=== PATIENT | female | born 1940 | race Hispanic/Latino ===

== ENCOUNTER → 2017-11-08 | Outpatient (CLI) | payer OTHER | END | disposition home or self-care (01) | LOC: SHCH 11:28 | PROVIDERS: ATTEND Internal Medicine Cardiovascular Disease | DX: I08.1 Rheumatic disorders of both mitral and tricuspid valves (principal); I70.0 Atherosclerosis of aorta; I13.0 Hypertensive heart and chronic kidney disease with heart failure and stage 1 through stage 4 chronic kidney disease, or unspecified chronic kidney disease; E11.22 Type 2 diabetes mellitus with diabetic chronic kidney disease; N18.9 Chronic kidney disease, unspecified; I50.22 Chronic systolic (congestive) heart failure; E78.5 Hyperlipidemia, unspecified; I25.10 Atherosclerotic heart disease of native coronary artery without angina pectoris | CPT/HCPCS: 93306 ==

== ENCOUNTER 2018-02-14 14:36 | Emergency (ER) | payer OTHER ==
[2018-02-14 15:10] LABS: APPEARANCE,URINE Clear (CLEAR); BILIRUBIN,URINE Negative (NEGATIVE); COLOR,URINE Yellow (YELLOW); GLUCOSE, URINE (UA) Negative (NEGATIVE); KETONES,URINE Negative (NEGATIVE); LEUKOCYTE ESTERASE ,URINE Trace (NEGATIVE); NITRATE,URINE Negative (NEGATIVE); OCCULT BLOOD,URINE Negative (NEGATIVE); PROTEIN,URINE Negative (NEGATIVE)
[2018-02-14 15:19] LABS: BASOPHILS % (AUTO) 0.6 % (0.0-5.0); EOSINOPHILS % (AUTO) 0.4 % (0.0-8.0); LYMPHOCYTES % (AUTO) 16.5 % (21.0-51.0); MEAN CORPUSCULAR HEMOGLOBIN 33.3 pg (27.0-33.0); MONOCYTES % (AUTO) 8.7 % (3.0-13.0); NEUTROPHILS % (AUTO) 73.8 % (40.0-77.0); PLATELET COUNT (AUTO) 168 K/uL (130-400); RED CELL DISTRIBUTION WIDTH 14.3 % (11.0-15.5); WHITE BLOOD COUNT (AUTO) 8.3 K/uL (4.8-10.8)
[2018-02-14 15:22] LABS: CREATININE 1.1 mg/dL (0.5-1.5); POTASSIUM 3.7 mmol/L (3.5-5.1)
[2018-02-14 15:29] LABS: BILIRUBIN,TOTAL 2.3 mg/dL (0.2-1.0)
[2018-02-14 15:41] LABS: RBC,URINE 0-1 /HPF (0-1)
[2018-02-14 15:42] LABS: BACTERIA,URINE Rare /HPF (None Seen); HYALINE CASTS, URINE 0-1 /LPF (0-1 /LPF); SQUAMOUS EPITHELIAL CELL,UR Few /HPF (0-2)
[2018-02-14] MEDS ORDERED: FUROSEMIDE 10 MG/ML 4ML VIAL ONE (17:47)
[2018-02-19] MEDS ORDERED: CARV6.25 PO (20:15)
[2018-02-19] MEDS ORDERED: CHOL50004 PO (20:15)
[2018-02-19] MEDS ORDERED: FURO20TA4 PO (20:15)
[2018-02-19] MEDS ORDERED: FERR325T22 PO (20:15)
[2018-02-19] MEDS ORDERED: ASPI-555 PO (20:15)
[2018-02-19] MEDS ORDERED: POTA20TA82 PO (20:15)
[2018-02-19] MEDS ORDERED: GLIM4TAB3 PO (20:15)
== END 2018-02-14 20:16 | disposition home or self-care (01) ==
LOC: EDH 14:36
DX: I11.0 Hypertensive heart disease with heart failure (principal); I50.9 Heart failure, unspecified; E87.1 Hypo-osmolality and hyponatremia; E11.65 Type 2 diabetes mellitus with hyperglycemia
CPT/HCPCS: 36415; 71046; 80053; 81001; 82550; 83880; 84484 ×2; 85025; 93005 ×2; 96374; 99284; J1940

== ENCOUNTER 2018-03-11 12:09 | Inpatient (IN) | payer OTHER | END 2018-03-17 13:05 | disposition home or self-care (01) | LOC: EDH 12:09 → 2DH 14:52 | DX: I13.0 Hypertensive heart and chronic kidney disease with heart failure and stage 1 through stage 4 chronic kidney disease, or unspecified chronic kidney disease (principal); I50.41 Acute combined systolic (congestive) and diastolic (congestive) heart failure; E87.1 Hypo-osmolality and hyponatremia; E11.22 Type 2 diabetes mellitus with diabetic chronic kidney disease; I34.0 Nonrheumatic mitral (valve) insufficiency; I07.1 Rheumatic tricuspid insufficiency; Z72.0 Tobacco use; N18.3 Chronic kidney disease, stage 3 (moderate) ==

== ENCOUNTER 2018-11-30 09:42 | Emergency (ER) | payer OTHER ==
[~2018-11-30 09:42] MED LIST: ASPI-555 PO; CHOL50004 PO; FERR325T22 PO; FURO40TA7 PO; GLIM4TAB5 PO; POTA20TA82 PO; SPIR25TA PO
[2018-11-30] MEDS ORDERED: SODIUM CHLORIDE 0.9% 500ML 500 ML IV ONE (10:39)
[2018-11-30] MEDS ORDERED: ONDANSETRON HCL 4 MG/2 ML VIAL ONE (10:40)
[2018-11-30 10:52] LABS: BASOPHILS % (AUTO) 0.3 % (0.0-5.0); EOSINOPHILS % (AUTO) 0.2 % (0.0-8.0); HEMATOCRIT 34.5 % (36-48); LYMPHOCYTES % (AUTO) 8.1 % (21.0-51.0); MEAN CORPUSCULAR HEMOGLOBIN 34.3 pg (27.0-33.0); MEAN CORPUSCULAR HGB CONC 34.2 g/dL (32.0-36.0); MONOCYTES % (AUTO) 4.4 % (3.0-13.0); NUCLEATED RED BLOOD CELLS 0.1 % (0.0-0.19); PLATELET COUNT (AUTO) 200 K/uL (130-400); RED BLOOD CELL COUNT(AUTO) 3.44 MIL/uL (4.00-5.50); RED CELL DISTRIBUTION WIDTH 12.3 % (11.0-15.5); WHITE BLOOD COUNT (AUTO) 9.1 K/uL (4.8-10.8)
[2018-11-30 10:53] LABS: ALBUMIN 3.7 g/dL (3.5-5.0); BILIRUBIN,TOTAL 0.5 mg/dL (0.2-1.0); CREATININE 1.4 mg/dL (0.5-1.5); POTASSIUM 4.7 mmol/L (3.5-5.1); TOTAL PROTEIN, SERUM 8.4 g/dL (6.0-8.3)
[2018-11-30] MEDS ORDERED: INSULIN HUMULIN R 100 UNIT/ML 3ML ONE (11:32)
[2018-11-30 14:02] LABS: APPEARANCE,URINE Clear (CLEAR); BILIRUBIN,URINE Negative (NEGATIVE); COLOR,URINE Yellow (YELLOW); GLUCOSE, URINE (UA) >=1000 mg/dL (NEGATIVE); KETONES,URINE Trace mg/dL (NEGATIVE); LEUKOCYTE ESTERASE ,URINE Negative (NEGATIVE); NITRATE,URINE Negative (NEGATIVE); OCCULT BLOOD,URINE Negative (NEGATIVE); PH,URINE 5.5 (5.0-8.0); PROTEIN,URINE Negative (NEGATIVE); UROBILINOGEN,URINE 0.2 mg/dL (0.2-1.0)
[2018-11-30] MEDS ORDERED: ACETAMINOPHEN 325 MG TAB ONE (14:16)
[2018-11-30 14:18] LABS: RBC,URINE 0-1 /HPF (0-1); WBC,URINE None Seen /HPF (0-1)
[2018-11-30 14:19] LABS: BACTERIA,URINE Few /HPF (None Seen)
[2018-11-30] MEDS ORDERED: ACETAMINOPHEN-CODEINE 300/30MG TAB ONE (15:11)
[2018-11-30] MEDS ORDERED: LIDOCAINE 5% TOPICAL PATCH TP ONE (15:16)
== END 2018-11-30 15:47 | disposition home or self-care (01) ==
LOC: EDH 09:42
DX: S22.009A Unspecified fracture of unspecified thoracic vertebra, initial encounter for closed fracture (principal); E11.65 Type 2 diabetes mellitus with hyperglycemia; R11.2 Nausea with vomiting, unspecified; I10 Essential (primary) hypertension; Z87.891 Personal history of nicotine dependence; Z88.2 Allergy status to sulfonamides; Z88.8 Allergy status to other drugs, medicaments and biological substances; X58.XXXA Exposure to other specified factors, initial encounter; Y93.89 Activity, other specified; Y92.89 Other specified places as the place of occurrence of the external cause; Y99.8 Other external cause status
CPT/HCPCS: 36415; 70450; 71045; 72131; 80053; 81001; 82010; 82150; 82948; 83690; 85025; 87804 ×2; 93005; 96361; 96374; 96375; 99285; J1815; J2405; J7040

== ENCOUNTER 2019-02-09 21:43 | Inpatient (IN) | payer OTHER ==
[~2019-02-09] VITALS: Ht 157.5 cm; Wt 58.2 kg
[2019-02-09] MEDS ORDERED: SODIUM CHLORIDE 0.9% 500ML 500 ML IV ONE (22:07)
[2019-02-09 22:40] LABS: BASOPHILS % (AUTO) 0.1 % (0.0-5.0); EOSINOPHILS % (AUTO) 0.3 % (0.0-8.0); HEMATOCRIT 27.9 % (36-48); LYMPHOCYTES % (AUTO) 4.8 % (21.0-51.0); MEAN CORPUSCULAR HEMOGLOBIN 33.3 pg (27.0-33.0); MEAN CORPUSCULAR HGB CONC 33.7 g/dL (32.0-36.0); MEAN CORPUSCULAR VOLUME 98.9 fL (79-99); NEUTROPHILS % (AUTO) 87.5 % (40.0-77.0); PLATELET COUNT (AUTO) 302 K/uL (130-400); RED BLOOD CELL COUNT(AUTO) 2.82 MIL/uL (4.00-5.50); RED CELL DISTRIBUTION WIDTH 12.1 % (11.0-15.5); WHITE BLOOD COUNT (AUTO) 13.7 K/uL (4.8-10.8)
[2019-02-09] MEDS ORDERED: SODIUM CHLORIDE 0.9% 1000ML 1,000 ML IV ONE ×2 (22:42→23:21)
[2019-02-09 22:49] LABS: INR 0.99 (0.85-1.15); PARTIAL THROMBOPLASTIN TIME 27.8 SEC (26.3-35.5); PROTHROMBIN TIME 10.4 SEC (9.6-11.6)
[2019-02-09 23:09] LABS: ALBUMIN 3.1 g/dL (3.5-5.0); BILIRUBIN,TOTAL 0.7 mg/dL (0.2-1.0); CREATININE 3.3 mg/dL (0.5-1.5)
[2019-02-09 23:15] LABS: APPEARANCE,URINE Clear (CLEAR); BILIRUBIN,URINE Negative (NEGATIVE); COLOR,URINE Dark Yellow (YELLOW); GLUCOSE, URINE (UA) Negative (NEGATIVE); KETONES,URINE Negative (NEGATIVE); LEUKOCYTE ESTERASE ,URINE Trace (NEGATIVE); NITRATE,URINE Negative (NEGATIVE); OCCULT BLOOD,URINE Trace (NEGATIVE); PROTEIN,URINE Trace mg/dL (NEGATIVE)
[2019-02-09 23:36] LABS: RBC,URINE 0-1 /HPF (0-1)
[2019-02-09 23:37] LABS: AMORPHOUS SEDIMENT,UR Few /LPF (None Seen); BACTERIA,URINE Few /HPF (None Seen); SQUAMOUS EPITHELIAL CELL,UR 0-2 /HPF (0-2)
[2019-02-10] VITALS (13 sets, daily range): BP systolic 93–130; BP diastolic 50–72
[2019-02-10 00:01] LABS: POTASSIUM 6.6 mmol/L (3.5-5.1)
[2019-02-10] MEDS ORDERED: SODIUM POLYSTYRENE SULFONATE 15 GM/60 ML ML ONE (00:08)
[2019-02-10] MEDS ORDERED: ALBUTEROL SULFATE 0.083% 2.5 MG/3 ML INH IH ONE (00:11)
[2019-02-10] MEDS ORDERED: SODIUM BICARB 50MEQ 50ML VIAL ONE (00:19)
[2019-02-10] MEDS ORDERED: INSULIN HUMULIN R 100 UNIT/ML 3ML ONE (00:19)
[2019-02-10] MEDS ORDERED: DEXTROSE 50%-WATER 50 ML DISP.SYRIN IV ONE (00:20)
[2019-02-10] MEDS ORDERED: ZOSYN 3.375GM+NS 50ML 50 ML IV ONE ×2 (01:38→15:02)
[2019-02-10] MEDS ORDERED: ACETAMINOPHEN 650 MG SUPPOSITORY RC PRN (02:00)
[2019-02-10] MEDS: SODIUM CHLORIDE 0.9% 1000ML 1,000 ML IV SCH ×3 (02:00→15:20)
[2019-02-10] MEDS ORDERED: SODIUM CHLORIDE 0.9% 1000ML 1,000 ML IV ONE ×4 (02:01→15:01)
[2019-02-10] MEDS ORDERED: SODIUM CHLORIDE 0.9% 1000ML 1,000 ML IV SCH (02:15)
[2019-02-10] MEDS ORDERED: SODIUM POLYSTYRENE SULFONATE 15 GM/60 ML ML PO SCH (02:15)
[2019-02-10] MEDS ORDERED: NOREPINEPHRINE 4MG/NS 250ML 250 ML IV SCH ×2 (02:30→17:00)
[2019-02-10] MEDS ORDERED: NOREPINEPHRINE BITARTRATE 1 MG/1 ML ML IV ONE (03:27)
[2019-02-10] MEDS ORDERED: SODIUM CHLORIDE 0.9% 250 ML IV ONE (03:28)
[2019-02-10 05:30] LABS: BASOPHILS % (AUTO) 0.1 % (0.0-5.0); EOSINOPHILS % (AUTO) 0.1 % (0.0-8.0); HEMATOCRIT 23.4 % (36-48); LYMPHOCYTES % (AUTO) 6.2 % (21.0-51.0); MEAN CORPUSCULAR HEMOGLOBIN 33.3 pg (27.0-33.0); MEAN CORPUSCULAR HGB CONC 33.3 g/dL (32.0-36.0); MONOCYTES % (AUTO) 7.8 % (3.0-13.0); NEUTROPHILS % (AUTO) 85.4 % (40.0-77.0); PLATELET COUNT (AUTO) 262 K/uL (130-400); RED BLOOD CELL COUNT(AUTO) 2.34 MIL/uL (4.00-5.50); RED CELL DISTRIBUTION WIDTH 12.2 % (11.0-15.5)
[2019-02-10 06:08] LABS: ALBUMIN 2.2 g/dL (3.5-5.0); BILIRUBIN,TOTAL 0.8 mg/dL (0.2-1.0); CREATININE 2.4 mg/dL (0.5-1.5); POTASSIUM 4.9 mmol/L (3.5-5.1); TOTAL PROTEIN, SERUM 6.1 g/dL (6.0-8.3)
[2019-02-10] MEDS: ALLOPURINOL 100 MG TABLET PO SCH ×3 (09:00→20:41)
[2019-02-10] MEDS: SODIUM BICARBONATE 650 MG TAB PO SCH ×3 (09:00→20:41)
[2019-02-10] MEDS: PANTOPRAZOLE 40 MG/VIAL IVP SCH (09:00)
[2019-02-10] MEDS ORDERED: METRONIDAZOLE 500MG/100ML BAG 100 ML ONE (09:16)
[2019-02-10] MEDS ORDERED: ZOSYN 3.375GM+NS 50ML 50 ML IV SCH (12:00)
[2019-02-10 12:47] LABS: TROPONIN I 0.05 ng/mL (0.00-0.06)
[2019-02-10] MEDS ORDERED: CEFEPIME HCL 2 GM VIAL IVP SCH (17:00)
[2019-02-10] MEDS ORDERED: ALBUMIN (HUMAN) 25% 100 ML IV SCH (17:00)
[2019-02-10] MEDS ORDERED: HYDROMORPHONE 4MG/ML 1ML VIAL IVP PRN (17:15)
--- NOTE | 2019-02-10 17:18 | NUR ---
DR LOPEZ MADE AWARE OF CONSULT, STATES HE WILL SEE THE PATIENT.
--- NOTE | 2019-02-10 17:26 | NUR ---
DR TANNER CALLED RE: CONSULT. STATES SHE WILL REVIEW CHART AND CALL BACK WITH ORDERS.
[2019-02-10] MEDS: MIDODRINE HCL 5 MG TABLET PO SCH (17:33)
[2019-02-10] MEDS: METRONIDAZOLE 500MG/100ML BAG 100 ML IV SCH ×2 (17:33→21:25)
[2019-02-10] MEDS: HEPARIN SODIUM 5000UNIT/ML 1ML VIAL SQ SCH (17:34)
[2019-02-10] MEDS: CEFEPIME HCL 1 GM VIAL IVP SCH (17:47)
[2019-02-10 18:32] LABS: TROPONIN I 0.08 ng/mL (0.00-0.06)
--- NOTE | 2019-02-10 20:30 | NUR ---
CARDIOLOGY DR. JESSICA CARRILLO AT BEDSIDE TO REVIEW CHART NEW ORDERS RECEIVED AND WILL BE CARRIED OUT.
[2019-02-10] MEDS ORDERED: ONDA4TAB4 PO (22:21)
[2019-02-10] MEDS ORDERED: FURO40TA5 PO (22:21)
[2019-02-10] MEDS ORDERED: ERGO2000 PO (22:21)
[2019-02-10] MEDS ORDERED: ACET-2247 PO (22:21)
[2019-02-10] MEDS ORDERED: PRAV20TA4 PO (22:21)
[2019-02-10] MEDS ORDERED: LISI-613 PO (22:21)
[2019-02-10] MEDS ORDERED: POTA20TA82 PO (22:21)
[2019-02-10] MEDS ORDERED: MAGN800O PO (22:21)
[2019-02-10] MEDS ORDERED: ASPI-555 PO (22:21)
[2019-02-10] MEDS ORDERED: ACET1TAB12 PO (22:21)
[2019-02-10] MEDS ORDERED: ACET325T51 PO (22:21)
[2019-02-10] MEDS ORDERED: GUAI118L40 PO (22:21)
[2019-02-10] MEDS ORDERED: CARV6.25 PO (22:21)
[2019-02-10] MEDS ORDERED: FERR325T22 PO (22:21)
[2019-02-10] MEDS ORDERED: MULT-1192 PO (22:21)
[2019-02-10] MEDS ORDERED: GLIM2TAB4 PO (22:21)
[2019-02-10] MEDS ORDERED: ONDA8TAB5 PO (22:21)
[2019-02-10] MEDS ORDERED: DOCU-116 PO (22:21)
[2019-02-11] VITALS (55 sets, daily range): BP systolic 76–137; BP diastolic 36–93
[2019-02-11] MEDS: MIDODRINE HCL 5 MG TABLET PO SCH ×4 (00:39→23:08)
[2019-02-11 03:44] LABS: HEMATOCRIT 23.1 % (36-48); PLATELET COUNT (AUTO) 269 K/uL (130-400); RED BLOOD CELL COUNT(AUTO) 2.31 MIL/uL (4.00-5.50); RED CELL DISTRIBUTION WIDTH 12.2 % (11.0-15.5); WHITE BLOOD COUNT (AUTO) 8.8 K/uL (4.8-10.8)
[2019-02-11] MEDS: SODIUM CHLORIDE 0.9% 1000ML 1,000 ML IV SCH ×2 (03:48→15:42)
[2019-02-11 03:55] LABS: INR 1.11 (0.85-1.15); PARTIAL THROMBOPLASTIN TIME 28.1 SEC (26.3-35.5); PROTHROMBIN TIME 11.6 SEC (9.6-11.6)
[2019-02-11] MEDS: HEPARIN SODIUM 5000UNIT/ML 1ML VIAL SQ SCH ×2 (03:58→17:00)
[2019-02-11 04:14] LABS: ALBUMIN 2.7 g/dL (3.5-5.0); BILIRUBIN,TOTAL 0.6 mg/dL (0.2-1.0); CREATININE 1.4 mg/dL (0.5-1.5); MAGNESIUM 2.1 mg/dL (1.80-2.40); POTASSIUM 3.4 mmol/L (3.5-5.1); THYROID STIMULATING HORMONE 2.29 uIU/mL (0.36-3.74); TOTAL PROTEIN, SERUM 6.1 g/dL (6.0-8.3)
[2019-02-11 04:20] LABS: ABG BASE EXCESS -5.4 mmol/L (-2.0-3.0); ABG HCO3 18.9 mmol/L (21.0-28.0); ABG OXYGEN SATURATION 96.3 % (95.0-99.0); ABG PCO2 34 mmHg (32-45)
[2019-02-11 04:26] LABS: BAND NEUTROPHILS % (MANUAL) 17 % (0-2); LYMPHOCYTES % (MANUAL) 15 % (22-44); MAN.DIFF COMMENT-IMPRESSION MANUAL DIFFERENTIAL; MONOCYTES % (MANUAL) 3 % (2-9); PLATELET MORPHOLOGY COMMENT ADEQUATE; SEGMENTED NEUTROPHILS % 65 % (40-70)
[2019-02-11] MEDS: CEFEPIME HCL 1 GM VIAL IVP SCH ×2 (05:27→17:59)
[2019-02-11] MEDS: METRONIDAZOLE 500MG/100ML BAG 100 ML IV SCH ×3 (05:28→22:06)
[2019-02-11] MEDS: ONDANSETRON HCL 4 MG/2 ML VIAL IVP PRN ×4 (05:28→23:08)
[2019-02-11] MEDS ORDERED: LIDOCAINE HCL-MPF 1% 2ML VIAL IV PRN (06:15)
[2019-02-11] MEDS ORDERED: SODIUM CHLORIDE 0.9% 500ML 500 ML IV ONE (06:30)
[2019-02-11] MEDS ORDERED: SODIUM BICARB 50MEQ 50ML VIAL IV SCH (06:30)
[2019-02-11] MEDS: PANTOPRAZOLE 40 MG/VIAL IVP SCH (08:05)
[2019-02-11] MEDS: SODIUM BICARBONATE 650 MG TAB PO SCH ×3 (08:12→21:13)
[2019-02-11] MEDS: ALLOPURINOL 100 MG TABLET PO SCH ×3 (08:12→21:14)
--- NOTE | 2019-02-11 09:01 | NUR ---
Waffle boots applied to the feet bilaterally to raise heels off the bed
--- NOTE | 2019-02-11 14:10 | NUR ---
DC PLAN VISITED WITH PATIENT. PATIENT LIVES WITH SPOUSE. INDEPENDENT ABLE TO PERFORM ADL'S. PATIENT HAS NO SERVICES OR DME'S. PATIENT HAD FALLEN AT HOME [facility] PER FAMILY MOM WANTS TO GO HOME BUT NOT SURE IF WILL BE ABLE TO. PATIENT SLEEPING DID NOT WAKE SEEMS TO BE IN PAIN. Addendum: 02/11/19 at 1419 by BENNIE MCPHERSON RN CM Amended: Links added.
[2019-02-11] MEDS: PHARMACY COMMUNICATION MISC SCH (19:00)
[2019-02-11] MEDS: HYDROMORPHONE 1 MG/1 ML AMP IVP PRN (19:34)
[2019-02-11] MEDS ORDERED: ALBUMIN (HUMAN) 25% 100 ML IV ONE (21:00)
[2019-02-11] MEDS ORDERED: MIDODRINE HCL 5 MG TABLET ONE (23:03)
[2019-02-12] VITALS (20 sets, daily range): BP systolic 92–116; BP diastolic 48–76
[2019-02-12] MEDS: SODIUM CHLORIDE 0.9% 1000ML 1,000 ML IV SCH ×3 (00:10→20:37)
[2019-02-12] MEDS: PHARMACY COMMUNICATION MISC SCH ×3 (03:00→17:49)
[2019-02-12 03:51] LABS: ABG BASE EXCESS -4.8 mmol/L (-2.0-3.0); ABG HCO3 19.3 mmol/L (21.0-28.0); ABG OXYGEN SATURATION 97.8 % (95.0-99.0); ABG PCO2 33 mmHg (32-45)
[2019-02-12] MEDS ORDERED: ALBUMIN (HUMAN) 25% 100 ML IV ONE (03:51)
[2019-02-12 04:09] LABS: HEMATOCRIT 21.9 % (36-48); MEAN CORPUSCULAR HEMOGLOBIN 32.1 pg (27.0-33.0); MEAN CORPUSCULAR HGB CONC 32.4 g/dL (32.0-36.0); MEAN CORPUSCULAR VOLUME 99.1 fL (79-99); PLATELET COUNT (AUTO) 270 K/uL (130-400); RED BLOOD CELL COUNT(AUTO) 2.21 MIL/uL (4.00-5.50); RED CELL DISTRIBUTION WIDTH 12.7 % (11.0-15.5)
[2019-02-12] MEDS: HEPARIN SODIUM 5000UNIT/ML 1ML VIAL SQ SCH ×2 (04:10→20:35)
[2019-02-12 04:18] LABS: BAND NEUTROPHILS % (MANUAL) 5 % (0-2); LYMPHOCYTES % (MANUAL) 11 % (22-44); MONOCYTES % (MANUAL) 5 % (2-9); SEGMENTED NEUTROPHILS % 79 % (40-70)
[2019-02-12 04:19] LABS: MAN.DIFF COMMENT-IMPRESSION MANUAL DIFFERENTIAL; PLATELET MORPHOLOGY COMMENT ADEQUATE
[2019-02-12 04:22] LABS: INR 1.33 (0.85-1.15); PARTIAL THROMBOPLASTIN TIME 30.5 SEC (26.3-35.5); PROTHROMBIN TIME 13.8 SEC (9.6-11.6)
[2019-02-12 04:31] LABS: ALBUMIN 2.9 g/dL (3.5-5.0); BILIRUBIN,TOTAL 0.6 mg/dL (0.2-1.0); CREATININE 1.3 mg/dL (0.5-1.5); MAGNESIUM 2.4 mg/dL (1.80-2.40); PHOSPHORUS 2.8 mg/dL (2.5-4.9); POTASSIUM 3.2 mmol/L (3.5-5.1); TOTAL PROTEIN, SERUM 5.8 g/dL (6.0-8.3)
[2019-02-12] MEDS: POTASSIUM CHLORIDE 10MEQ/100ML 100 ML IV PRN ×2 (04:56→10:48)
[2019-02-12] MEDS: CEFEPIME HCL 1 GM VIAL IVP SCH ×2 (04:56→20:31)
[2019-02-12] MEDS: METRONIDAZOLE 500MG/100ML BAG 100 ML IV SCH ×3 (05:38→20:31)
[2019-02-12] MEDS: ONDANSETRON HCL 4 MG/2 ML VIAL IVP PRN ×2 (05:49→20:31)
[2019-02-12] MEDS: ALLOPURINOL 100 MG TABLET PO SCH ×3 (08:55→20:32)
[2019-02-12] MEDS: SODIUM BICARBONATE 650 MG TAB PO SCH ×3 (08:55→20:32)
[2019-02-12] MEDS: MIDODRINE HCL 5 MG TABLET PO SCH ×2 (08:56→20:30)
[2019-02-12] MEDS: PANTOPRAZOLE SODIUM 40 MG TABLET.DR PO SCH (09:43)
[2019-02-12] MEDS ORDERED: LIDOCAINE HCL-MPF 1% 2ML VIAL IV PRN (10:45)
--- NOTE | 2019-02-12 14:00 | NUR ---
EMS HERE TO [employer]OTH CLEANER PATIENT FOR HIDA SCAN TO BE DONE AT [facility]. PATIENT TAKEN WITHOUT INCIDENT AND WILL BE THERE FOR SEVERAL HOURS DUE TO LENGTH OF SCAN. Addendum: 02/12/19 at 1412 by FRANCIS WHITEHEAD RN RN Amended: Links added.
[2019-02-13] VITALS (16 sets, daily range): BP systolic 96–132; BP diastolic 50–76
[2019-02-13] MEDS: MIDODRINE HCL 5 MG TABLET PO SCH ×3 (01:59→21:27)
[2019-02-13] MEDS: ONDANSETRON HCL 4 MG/2 ML VIAL IVP PRN ×2 (02:17→08:57)
[2019-02-13] MEDS: PHARMACY COMMUNICATION MISC SCH ×2 (03:00→10:43)
[2019-02-13 04:04] LABS: HEMATOCRIT 23.4 % (36-48); MEAN CORPUSCULAR HEMOGLOBIN 32.9 pg (27.0-33.0); MEAN CORPUSCULAR HGB CONC 32.5 g/dL (32.0-36.0); MEAN CORPUSCULAR VOLUME 101.3 fL (79-99); NUCLEATED RED BLOOD CELLS 0.2 % (0.0-0.19); PLATELET COUNT (AUTO) 277 K/uL (130-400); RED BLOOD CELL COUNT(AUTO) 2.31 MIL/uL (4.00-5.50); RED CELL DISTRIBUTION WIDTH 13.3 % (11.0-15.5); WHITE BLOOD COUNT (AUTO) 9.5 K/uL (4.8-10.8)
[2019-02-13 04:14] LABS: INR 1.44 (0.85-1.15); PARTIAL THROMBOPLASTIN TIME 30.2 SEC (26.3-35.5); PROTHROMBIN TIME 14.9 SEC (9.6-11.6)
[2019-02-13 04:21] LABS: BASOPHILS % (AUTO) 0.1 % (0.0-5.0); LYMPHOCYTES % (AUTO) 7.7 % (21.0-51.0); MONOCYTES % (AUTO) 7.2 % (3.0-13.0); NEUTROPHILS % (AUTO) 83.8 % (40.0-77.0)
[2019-02-13 04:23] LABS: ALBUMIN 2.9 g/dL (3.5-5.0); BILIRUBIN,TOTAL 0.5 mg/dL (0.2-1.0); CREATININE 1.3 mg/dL (0.5-1.5); PHOSPHORUS 2.7 mg/dL (2.5-4.9); POTASSIUM 3.7 mmol/L (3.5-5.1); TOTAL PROTEIN, SERUM 5.8 g/dL (6.0-8.3)
[2019-02-13] MEDS: HEPARIN SODIUM 5000UNIT/ML 1ML VIAL SQ SCH ×2 (05:35→21:22)
[2019-02-13] MEDS: METRONIDAZOLE 500MG/100ML BAG 100 ML IV SCH ×3 (05:36→21:27)
[2019-02-13] MEDS: CEFEPIME HCL 1 GM VIAL IVP SCH ×2 (05:36→21:09)
[2019-02-13] MEDS: SODIUM CHLORIDE 0.9% 1000ML 1,000 ML IV SCH (05:42)
[2019-02-13] MEDS: PROMETHAZINE HCL 25 MG/ML 1ML AMPULE IM PRN ×2 (06:09→21:09)
[2019-02-13] MEDS: ALLOPURINOL 100 MG TABLET PO SCH ×3 (08:57→21:09)
[2019-02-13] MEDS: PANTOPRAZOLE SODIUM 40 MG TABLET.DR PO SCH (08:57)
[2019-02-13] MEDS: SODIUM BICARBONATE 650 MG TAB PO SCH ×3 (08:57→21:09)
--- NOTE | 2019-02-13 14:25 | NUR ---
REPORT GIVEN TO KATHERYN GARCIA, INFORMED OF ORDER FOR IR PERC TAO DRAIN. PENDING TO BE SEEN BY DR ERICKSON. PATIENT MOVED IN THE BED TO 225 WITH ALL BELONGINGS. PATIENT IN STABLE CONDITION.
[2019-02-13] MEDS ORDERED: MIDODRINE HCL 5 MG TABLET PO SCH (17:00)
[2019-02-13] MEDS: HYDROMORPHONE 1 MG/1 ML AMP IVP PRN (21:07)
[2019-02-14 03:40] VITALS: BP 104/55
[2019-02-14 04:25] LABS: BASOPHILS % (AUTO) 0.3 % (0.0-5.0); EOSINOPHILS % (AUTO) 0.6 % (0.0-8.0); HEMATOCRIT 24.4 % (36-48); MEAN CORPUSCULAR HEMOGLOBIN 32.8 pg (27.0-33.0); MEAN CORPUSCULAR HGB CONC 32.8 g/dL (32.0-36.0); MONOCYTES % (AUTO) 8.7 % (3.0-13.0); NEUTROPHILS % (AUTO) 77.2 % (40.0-77.0); NUCLEATED RED BLOOD CELLS 1.8 % (0.0-0.19); PLATELET COUNT (AUTO) 295 K/uL (130-400); RED BLOOD CELL COUNT(AUTO) 2.44 MIL/uL (4.00-5.50); RED CELL DISTRIBUTION WIDTH 13.2 % (11.0-15.5); WHITE BLOOD COUNT (AUTO) 9.9 K/uL (4.8-10.8)
[2019-02-14 04:50] LABS: CREATININE 1.4 mg/dL (0.5-1.5); POTASSIUM 3.4 mmol/L (3.5-5.1)
[2019-02-14] MEDS: SODIUM CHLORIDE 0.9% 1000ML 1,000 ML IV SCH (05:14)
[2019-02-14] MEDS: METRONIDAZOLE 500MG/100ML BAG 100 ML IV SCH ×3 (05:14→21:59)
[2019-02-14] MEDS: MIDODRINE HCL 5 MG TABLET PO SCH ×3 (05:14→20:18)
[2019-02-14] MEDS: SODIUM BICARBONATE 650 MG TAB PO SCH ×3 (07:52→20:17)
[2019-02-14] MEDS: PANTOPRAZOLE SODIUM 40 MG TABLET.DR PO SCH ×2 (07:52→20:18)
[2019-02-14] MEDS: CEFEPIME HCL 1 GM VIAL IVP SCH ×2 (07:52→20:18)
[2019-02-14] MEDS: ALLOPURINOL 100 MG TABLET PO SCH ×3 (07:52→20:18)
[2019-02-14] MEDS: HEPARIN SODIUM 5000UNIT/ML 1ML VIAL SQ SCH ×2 (07:56→20:21)
--- NOTE | 2019-02-14 08:00 | NUR ---
ASSESSMENT PT IS AAOX3 DENIES CP DENIES SOB DENIES NV NO COMPLAINTS RESTING IN BED. NO VISIBLE SIGNS OF DISTRESS NOTED. BREATHING PATTERN IS EVEN AND UNLABORED AT THIS TIME. AMD MEDS GIVEN AND TOLERATED WITH CLEAR LIQUIDS. DAUGHTER IS AT BEDSIDE. CALL LIGHT WITHIN REACH.
[2019-02-14 08:04] VITALS: BP 130/56
--- NOTE | 2019-02-14 08:30 | NUR ---
UP TO CHAIR WITH 2 PERSON ASSIST, DAUGHTER IS AT BEDSIDE.
[2019-02-14] MEDS: ONDANSETRON HCL 4 MG/2 ML VIAL IVP PRN ×2 (08:31→18:06)
[2019-02-14 12:13] VITALS: BP 146/69
--- NOTE | 2019-02-14 13:44 | NUR ---
DC PLAN SPOKE TO PATIENT AND FAMILY. SPOUSE SIGNED [facility] FOR [facility] SAID THEY HAD A FAMILY MEMBER THERE. PATIENT IN AGREEMENT.INFO SENT REP NOTIFIED. PENDING CHANTAL AND AUTH. Addendum: 02/14/19 at 1346 by BENNIE MCPHERSON RN CM Amended: Links added.
--- NOTE | 2019-02-14 13:50 | NUR ---
MD ROUNDS DR CARPENTER ROUNDED, SAW PATIENT. STATES PLAN FOR DC TOMORROW IF PATIENT CONTINUES TO TOLERATED MEALS.
[2019-02-14 16:13] VITALS: BP 134/60
[2019-02-14 19:00] VITALS: BP 153/75
[2019-02-14] MEDS: POTASSIUM CHLORIDE 20 MEQ ERTAB PO SCH (20:18)
[2019-02-14] MEDS: FUROSEMIDE 10 MG/ML 4ML VIAL IV SCH (20:19)
[2019-02-14] MEDS: PROMETHAZINE HCL 25 MG/ML 1ML AMPULE IM PRN (20:20)
[2019-02-14 23:00] VITALS: BP 145/69
[2019-02-15 03:00] VITALS: BP 136/59
[2019-02-15 04:38] LABS: BASOPHILS % (AUTO) 0.2 % (0.0-5.0); EOSINOPHILS % (AUTO) 1.6 % (0.0-8.0); HEMATOCRIT 23.9 % (36-48); LYMPHOCYTES % (AUTO) 9.5 % (21.0-51.0); MEAN CORPUSCULAR HEMOGLOBIN 32.9 pg (27.0-33.0); MEAN CORPUSCULAR HGB CONC 33.5 g/dL (32.0-36.0); MEAN CORPUSCULAR VOLUME 98.4 fL (79-99); MONOCYTES % (AUTO) 7.7 % (3.0-13.0); NEUTROPHILS % (AUTO) 78.9 % (40.0-77.0); NUCLEATED RED BLOOD CELLS 2.3 % (0.0-0.19); PLATELET COUNT (AUTO) 272 K/uL (130-400); RED BLOOD CELL COUNT(AUTO) 2.43 MIL/uL (4.00-5.50); RED CELL DISTRIBUTION WIDTH 12.8 % (11.0-15.5); WHITE BLOOD COUNT (AUTO) 9.8 K/uL (4.8-10.8)
[2019-02-15 04:55] LABS: CREATININE 1.2 mg/dL (0.5-1.5); POTASSIUM 3.1 mmol/L (3.5-5.1)
[2019-02-15] MEDS: METRONIDAZOLE 500MG/100ML BAG 100 ML IV SCH ×3 (06:14→21:11)
[2019-02-15] MEDS: POTASSIUM CHLORIDE 20 MEQ ERTAB PO SCH ×4 (06:15→21:13)
[2019-02-15] MEDS: ONDANSETRON HCL 4 MG/2 ML VIAL IVP PRN ×2 (06:43→17:01)
[2019-02-15 07:52] VITALS: BP 106/58
[2019-02-15] MEDS: CEFEPIME HCL 1 GM VIAL IVP SCH ×2 (08:57→21:11)
[2019-02-15] MEDS: MIDODRINE HCL 5 MG TABLET PO SCH ×2 (08:57→21:12)
[2019-02-15] MEDS: PANTOPRAZOLE SODIUM 40 MG TABLET.DR PO SCH ×2 (08:57→21:12)
[2019-02-15] MEDS: SODIUM BICARBONATE 650 MG TAB PO SCH ×3 (08:58→21:12)
[2019-02-15] MEDS: ALLOPURINOL 100 MG TABLET PO SCH ×3 (08:58→21:12)
[2019-02-15] MEDS: FUROSEMIDE 10 MG/ML 4ML VIAL IV SCH ×2 (08:58→21:12)
[2019-02-15] MEDS: HEPARIN SODIUM 5000UNIT/ML 1ML VIAL SQ SCH (09:04)
[2019-02-15 11:57] VITALS: BP 93/56
[2019-02-15 13:54] LABS: MEAN CORPUSCULAR HEMOGLOBIN 33.2 pg (27.0-33.0); MEAN CORPUSCULAR HGB CONC 34.2 g/dL (32.0-36.0); MEAN CORPUSCULAR VOLUME 97.2 fL (79-99); NUCLEATED RED BLOOD CELLS 1.5 % (0.0-0.19); PLATELET COUNT (AUTO) 254 K/uL (130-400); RED BLOOD CELL COUNT(AUTO) 2.47 MIL/uL (4.00-5.50); RED CELL DISTRIBUTION WIDTH 12.8 % (11.0-15.5); WHITE BLOOD COUNT (AUTO) 11.3 K/uL (4.8-10.8)
[2019-02-15 14:06] LABS: CREATININE 1.1 mg/dL (0.5-1.5)
[2019-02-15 14:08] LABS: INR 1.56 (0.85-1.15); PROTHROMBIN TIME 16.1 SEC (9.6-11.6)
[2019-02-15 14:20] LABS: POTASSIUM 2.8 mmol/L (3.5-5.1)
[2019-02-15 14:21] LABS: EOSINOPHILS % (MANUAL) 1 % (1-6); LYMPHOCYTES % (MANUAL) 9 % (22-44); MAN.DIFF COMMENT-IMPRESSION MANUAL DIFFERENTIAL; PLATELET MORPHOLOGY COMMENT ADEQUATE; SEGMENTED NEUTROPHILS % 90 % (40-70)
[2019-02-15] MEDS: POTASSIUM CHLORIDE 20MEQ/100ML 100 ML IV PRN ×2 (14:31→17:15)
[2019-02-15 15:38] VITALS: BP 118/64
--- NOTE | 2019-02-15 16:00 | NUR ---
PROCEDURE PATIENT SCHEDULED FOR PERCUTANEOUS CHOLECYSTOSTOMY TUBE PLACEMENT. PATIENT UNDECIDED AND DID NOT SIGNED CONSENT. DR Joey PATRICIO NOTIFIED AND RESCHEDULED PROCEDURE FOR Monday02/18/19 WHEN PATIENT SIGNS CONSENT. Falguni WEEMS RN NOTIFIED OF PROCEDURE OUTCOME.
[2019-02-15 20:07] VITALS: BP 98/61
[2019-02-15 23:58] VITALS: BP 93/50
[2019-02-16 03:51] VITALS: BP 99/68
[2019-02-16 04:10] LABS: BASOPHILS % (AUTO) 0.1 % (0.0-5.0); EOSINOPHILS % (AUTO) 2.1 % (0.0-8.0); HEMATOCRIT 25.2 % (36-48); LYMPHOCYTES % (AUTO) 9.5 % (21.0-51.0); MEAN CORPUSCULAR HEMOGLOBIN 32.9 pg (27.0-33.0); MEAN CORPUSCULAR HGB CONC 33.7 g/dL (32.0-36.0); MEAN CORPUSCULAR VOLUME 97.7 fL (79-99); MONOCYTES % (AUTO) 7.1 % (3.0-13.0); NEUTROPHILS % (AUTO) 79.5 % (40.0-77.0); NUCLEATED RED BLOOD CELLS 1.7 % (0.0-0.19); PLATELET COUNT (AUTO) 255 K/uL (130-400); RED BLOOD CELL COUNT(AUTO) 2.58 MIL/uL (4.00-5.50); RED CELL DISTRIBUTION WIDTH 12.7 % (11.0-15.5); WHITE BLOOD COUNT (AUTO) 9.5 K/uL (4.8-10.8)
[2019-02-16 04:25] LABS: CREATININE 1.1 mg/dL (0.5-1.5); MAGNESIUM 1.2 mg/dL (1.80-2.40); POTASSIUM 3.5 mmol/L (3.5-5.1)
[2019-02-16] MEDS: METRONIDAZOLE 500MG/100ML BAG 100 ML IV SCH ×3 (06:19→21:25)
[2019-02-16] MEDS ORDERED: POTASSIUM CHLORIDE 20 MEQ ERTAB PO ONE (06:20)
[2019-02-16] MEDS: POTASSIUM CHLORIDE 20 MEQ ERTAB PO SCH (06:21)
[2019-02-16 07:27] VITALS: BP 96/56
[2019-02-16] MEDS: CEFEPIME HCL 1 GM VIAL IVP SCH ×2 (08:51→21:25)
[2019-02-16] MEDS: ALLOPURINOL 100 MG TABLET PO SCH ×3 (08:51→21:25)
[2019-02-16] MEDS: SODIUM BICARBONATE 650 MG TAB PO SCH ×3 (08:51→21:25)
[2019-02-16] MEDS: MIDODRINE HCL 5 MG TABLET PO SCH ×2 (08:51→21:25)
[2019-02-16] MEDS: PANTOPRAZOLE SODIUM 40 MG TABLET.DR PO SCH ×2 (08:51→21:25)
[2019-02-16] MEDS: FUROSEMIDE 10 MG/ML 4ML VIAL IV SCH ×2 (08:51→21:25)
[2019-02-16 11:00] VITALS: BP 91/51
[2019-02-16] MEDS ORDERED: MAGNESIUM 4GM PREMIX 100ML 100 ML IV SCH (11:45)
[2019-02-16 15:00] VITALS: BP 97/52
[2019-02-16 19:50] VITALS: BP 120/66
[2019-02-17] VITALS (7 sets, daily range): BP systolic 94–121; BP diastolic 54–62
[2019-02-17 05:17] LABS: BASOPHILS % (AUTO) 0.1 % (0.0-5.0); EOSINOPHILS % (AUTO) 1.7 % (0.0-8.0); HEMATOCRIT 26.7 % (36-48); LYMPHOCYTES % (AUTO) 8.8 % (21.0-51.0); MEAN CORPUSCULAR HEMOGLOBIN 32.6 pg (27.0-33.0); MEAN CORPUSCULAR VOLUME 98.9 fL (79-99); MONOCYTES % (AUTO) 6.2 % (3.0-13.0); NEUTROPHILS % (AUTO) 82.1 % (40.0-77.0); NUCLEATED RED BLOOD CELLS 0.9 % (0.0-0.19); PLATELET COUNT (AUTO) 245 K/uL (130-400); RED CELL DISTRIBUTION WIDTH 12.6 % (11.0-15.5); WHITE BLOOD COUNT (AUTO) 10.6 K/uL (4.8-10.8)
[2019-02-17 05:19] LABS: CREATININE 0.9 mg/dL (0.5-1.5); MAGNESIUM 2.8 mg/dL (1.80-2.40); PHOSPHORUS 1.3 mg/dL (2.5-4.9)
[2019-02-17 05:28] LABS: POTASSIUM 2.7 mmol/L (3.5-5.1)
[2019-02-17] MEDS: METRONIDAZOLE 500MG/100ML BAG 100 ML IV SCH ×3 (06:05→20:53)
[2019-02-17] MEDS: POTASSIUM CHLORIDE 20MEQ/100ML 100 ML IV PRN (06:54)
[2019-02-17] MEDS: ALLOPURINOL 100 MG TABLET PO SCH ×3 (09:57→20:54)
[2019-02-17] MEDS: PANTOPRAZOLE SODIUM 40 MG TABLET.DR PO SCH ×2 (09:58→20:54)
[2019-02-17] MEDS: SODIUM BICARBONATE 650 MG TAB PO SCH ×3 (09:58→20:53)
[2019-02-17] MEDS: MIDODRINE HCL 5 MG TABLET PO SCH ×2 (09:58→20:54)
[2019-02-17] MEDS: CEFEPIME HCL 1 GM VIAL IVP SCH ×2 (10:31→20:55)
[2019-02-17] MEDS ORDERED: POTASSIUM CHLORIDE 20 MEQ ERTAB PO PRN (12:45)
[2019-02-17] MEDS ORDERED: POTASSIUM CHLORIDE 20MEQ/100ML 100 ML IV PRN (12:45)
[2019-02-17] MEDS ORDERED: LIDOCAINE HCL-MPF 1% 2ML VIAL IV PRN (12:45)
--- NOTE | 2019-02-17 12:55 | NUR ---
DR. FROST AND SALVADOR MORIN MONOGRAM OPERATOR ARE IN TO SEE PATIENT. PENDING APPROVAL FOR [facility] BORRERO.
[2019-02-17] MEDS: NEUTRA-PHOS PACKET 1 EACH PO SCH ×3 (13:09→20:56)
[2019-02-17] MEDS: POTASSIUM CHLORIDE 10% ELIXIR 20 MEQ/15 ML UDCUP PO PRN ×3 (13:10→17:13)
--- NOTE | 2019-02-17 14:12 | NUR ---
RD NOTIFICATION DIET: GI SOFT/BLAND, MECHANICAL SOFT/CHOPPED. PO INTAKE 50-75% AND HAS GOOD APPETITE, PER PT. PT CLAIMS TO BE TOLERATING DIET WELL. NO COMPLAINTS OF N/V/C/D AT THIS TIME. LEFT HEEL ULCER NOTED. PENDING CHOLECYSTOSTOMY TOMORROW 02/18/19. NO DIFFICULTIES CHEWING OR SWALLOWING FOOD/ LIQUIDS AT THIS TIME. RD PROVIDED LOW FAT AND HIGH FIBER DIET AND NUTRITION EDUCATION DUE TO CURRENT HEALTH STATUS. PT AND DAUGHTER ASKED QUESTIONS, RD ANSWERED AND THEY VERBALIZED UNDERSTANDING. EDUCATION MATERIALS WERE PROVIDED. RD ENCOURAGED PT TO MIX BONNY SUPPLEMENT IN HER DRINK TO AID WOUND HEALING. THEY VERBALIZED UNDERSTANDING. RD RECOMMENDS ADD LOW FAT TO DIET ORDER RECOMMEND BONNY BID, 500MG VITAMIN C BID AND 220MG ZINC QD FOR 14 DAYS TO AID IN WOUND HEALING RD PROVIDED LOW FAT/ HIGH FIBER DIET AND NUTRITION EDU- MATERIALS PROVIDED Addendum: 02/17/19 at [address] Amended: Links added.
--- NOTE | 2019-02-17 14:19 | NUR ---
NUTRITION EDUCATION COMPLETED LEFT HEEL ULCER NOTED. PENDING CHOLECYSTOSTOMY TOMORROW 02/18/19. NO DIFFICULTIES CHEWING OR SWALLOWING FOOD/ LIQUIDS AT THIS TIME. RD PROVIDED LOW FAT AND HIGH FIBER DIET AND NUTRITION EDUCATION DUE TO CURRENT HEALTH STATUS. PT AND DAUGHTER ASKED QUESTIONS, RD ANSWERED AND THEY VERBALIZED UNDERSTANDING. EDUCATION MATERIALS WERE PROVIDED. RD ENCOURAGED PT TO MIX BONNY SUPPLEMENT IN HER DRINK TO AID WOUND HEALING. THEY VERBALIZED UNDERSTANDING. Addendum: 02/17/19 at [address] Amended: Links added.
--- NOTE | 2019-02-17 20:30 | NUR ---
PT AND DAUGHTER STATED CONCERN OVER PROCEDURE. WERE NOT AWARE THAT PROCEDURE WAS CANCELLED.WOULD LIKE TO FOLLOW UP WITH DR. ERICKSON.
[2019-02-18 04:24] VITALS: BP 125/54
[2019-02-18 04:52] LABS: BASOPHILS % (AUTO) 0.2 % (0.0-5.0); EOSINOPHILS % (AUTO) 1.3 % (0.0-8.0); HEMATOCRIT 27.7 % (36-48); MEAN CORPUSCULAR HEMOGLOBIN 33.2 pg (27.0-33.0); MEAN CORPUSCULAR HGB CONC 33.2 g/dL (32.0-36.0); MONOCYTES % (AUTO) 6.4 % (3.0-13.0); NEUTROPHILS % (AUTO) 81.4 % (40.0-77.0); NUCLEATED RED BLOOD CELLS 0.3 % (0.0-0.19); PLATELET COUNT (AUTO) 240 K/uL (130-400); RED BLOOD CELL COUNT(AUTO) 2.77 MIL/uL (4.00-5.50); RED CELL DISTRIBUTION WIDTH 14.1 % (11.0-15.5)
[2019-02-18 05:15] LABS: PHOSPHORUS 1.5 mg/dL (2.5-4.9); POTASSIUM 3.8 mmol/L (3.5-5.1)
[2019-02-18] MEDS: METRONIDAZOLE 500MG/100ML BAG 100 ML IV SCH (06:34)
[2019-02-18] MEDS: SODIUM BICARBONATE 650 MG TAB PO SCH ×3 (07:30→20:00)
[2019-02-18] MEDS: ALLOPURINOL 100 MG TABLET PO SCH ×3 (07:31→19:59)
[2019-02-18] MEDS: CEFEPIME HCL 1 GM VIAL IVP SCH ×2 (07:31→19:59)
[2019-02-18] MEDS: PANTOPRAZOLE SODIUM 40 MG TABLET.DR PO SCH ×2 (07:31→19:59)
[2019-02-18] MEDS: MIDODRINE HCL 5 MG TABLET PO SCH ×2 (07:31→20:00)
--- NOTE | 2019-02-18 07:50 | NUR ---
ASSESSMENT PT IS AAOX3 DENIES CP DENIES SOB DENIES NV AT THIS TIME, RESTING IN BED. NO COMPLAINTS. CALL LIGHT WITHIN REACH. DAUGHTER AT BEDSIDE.
[2019-02-18 08:14] VITALS: BP 110/75
[2019-02-18] MEDS ORDERED: POTASSIUM PHOS 15 mMOL+NS250ML 250 ML IV SCH (09:00)
[2019-02-18 11:51] VITALS: BP 91/48
[2019-02-18] MEDS: NEUTRA-PHOS PACKET 1 EACH PO SCH ×2 (13:10→19:59)
[2019-02-18] MEDS ORDERED: PHARMACY COMMUNICATION MISC SCH (13:15)
--- NOTE | 2019-02-18 15:36 | NUR ---
DC PLAN SPOKE TO [place] NO BED STILL AVAILABLE. LET MIKEL BAH KNOW SAID PATIENT HAD WANTED TO GO HOME WILL ASK DR. FROST WHAT HE THINKS. DR. FROST SAID OKAY TO DC HOME JUST NEED ONE MORE DAY. Addendum: 02/18/19 at 1537 by BENNIE MCPHERSON RN CM Amended: Links added.
[2019-02-18 16:17] VITALS: BP 111/60
[2019-02-18] MEDS ORDERED: METRONIDAZOLE 500MG/100ML BAG 100 ML ONE (19:20)
[2019-02-18 19:37] VITALS: BP 130/68
--- NOTE | 2019-02-18 20:55 | NUR ---
PT STATES SHE WANTS TO BE DC'D HOME. NOT TO A SNF. WILL INFORM PRIMARY IN THE AM. NO PAIN AT THIS TIME OR FEVERS.
[2019-02-18] MEDS ORDERED: METRONIDAZOLE 500MG/100ML BAG 100 ML IV SCH (21:00)
[2019-02-19] VITALS: BP 120/50
[2019-02-19 04:03] VITALS: BP 136/67
[2019-02-19] MEDS: ALLOPURINOL 100 MG TABLET PO SCH ×2 (07:16→13:24)
[2019-02-19] MEDS: SODIUM BICARBONATE 650 MG TAB PO SCH ×2 (07:16→13:24)
[2019-02-19] MEDS: PANTOPRAZOLE SODIUM 40 MG TABLET.DR PO SCH (07:16)
[2019-02-19] MEDS: MIDODRINE HCL 5 MG TABLET PO SCH (07:17)
[2019-02-19] MEDS: NEUTRA-PHOS PACKET 1 EACH PO SCH (07:17)
--- NOTE | 2019-02-19 08:00 | NUR ---
ASSESSMENT PT IS AAOX3 DENIES CP DENIES SOB DENIES NV AT THIS TIME, RESTING IN BED. NO COMPLAINTS. CALL LIGHT WITHIN REACH. DAUGHTER IS AT BEDSIDE.
[2019-02-19 08:25] VITALS: BP 119/63
[2019-02-19] MEDS ORDERED: METR500T PO (10:37)
[2019-02-19 11:57] VITALS: BP 90/60
--- NOTE | 2019-02-19 13:00 | NUR ---
UP TO CHAIR / BACK TO BED NO COMPLAINTS AT THIS TIME. CALL LIGHT WITHIN REACH.
[2019-02-19 16:01] VITALS: BP 98/61
--- NOTE | 2019-02-19 17:15 | NUR ---
DISCHARGE PT IS AAOX3 DENIES CP DENIES SOB DENIES NV NO COMPLAINTS. DC INSTRUCTIONS GIVEN TO PATIENT, SPOUSE AND 2 DAUGHTERS. VERBALIZE UNDERSTANDING OF INSTRUCTIONS AND NEW/HOME MEDICATIONS, ALONG WITH APPOINTMENTS AND PENDING APPOINTMENTS TO BE MADE BY PATIENT/FAMILY WHEN RESPECTIVE CLINICS OPEN. ALL QUESTIONS ANSWERED. ALL BELONGINGS GATHERED. PIV REMOVED CATH TIP INTACT, TELE PACK REMOVED. PRESCRIPTIONS CALLED IN TO [facility]/[address] [place] [address] STRIP. FAMILY WILL EDUCATION COUNSELOR MEDICATIONS.
== END 2019-02-19 17:26 | disposition home or self-care (01) | DRG 871 ==
LOC: EDH 21:43 → EDHIP 02-10 01:44 → 2CH 02-10 16:59 → 2DH 02-13 14:39
PROVIDERS: ADMIT Internal Medicine Critical Care Medicine; ATTEND Internal Medicine Critical Care Medicine
DX: A41.9 Sepsis, unspecified organism (principal); R65.21 Severe sepsis with septic shock; I50.23 Acute on chronic systolic (congestive) heart failure; N17.0 Acute kidney failure with tubular necrosis; S32.009A Unspecified fracture of unspecified lumbar vertebra, initial encounter for closed fracture; N39.0 Urinary tract infection, site not specified; M62.82 Rhabdomyolysis; K80.42 Calculus of bile duct with acute cholecystitis without obstruction; I13.0 Hypertensive heart and chronic kidney disease with heart failure and stage 1 through stage 4 chronic kidney disease, or unspecified chronic kidney disease; E86.0 Dehydration; I25.5 Ischemic cardiomyopathy; N18.3 Chronic kidney disease, stage 3 (moderate); E11.22 Type 2 diabetes mellitus with diabetic chronic kidney disease; E87.6 Hypokalemia; I08.0 Rheumatic disorders of both mitral and aortic valves; D64.9 Anemia, unspecified; E78.5 Hyperlipidemia, unspecified; E83.39 Other disorders of phosphorus metabolism; I25.10 Atherosclerotic heart disease of native coronary artery without angina pectoris; W19.XXXA Unspecified fall, initial encounter; Y93.89 Activity, other specified; Y92.89 Other specified places as the place of occurrence of the external cause; Y99.8 Other external cause status; Z87.81 Personal history of (healed) traumatic fracture; Z95.1 Presence of aortocoronary bypass graft; Z95.2 Presence of prosthetic heart valve; Z88.1 Allergy status to other antibiotic agents; Z88.8 Allergy status to other drugs, medicaments and biological substances
CPT/HCPCS: 36415; 36600; 70450; 71045; 74176; 74181; 76705; 80048; 80053; 81001; 82550; 82803; 82948; 83605; 83690; 83735; 83874; 84100; 84132; 84443; 84484; 85025; 85610; 85730; 87040; 87088; 93005; 93306; 94640; 97039; 99291; A4344; C9113; G0378; J0692; J1170; J1644; J1815; J1940; J2405; J2543; J2550; J3475; J3480; J3490; J7030; J7040; J7070; P9046; P9047